=== PATIENT | male | born 1935 | race Caucasian/White ===

== ENCOUNTER 2018-12-01 19:09 | Inpatient (IN) | payer OTHER, MEDICAID ==
--- NOTE | 2018-11-20 22:30 | NUR ---
RECEIVED PT FROM ED NURSE AT BEDSIDE. PT IN STABLE CONDITION. AAOX2. INTRODUCED SELF TO PT. BOARD UPDATED. NO COMPLAINTS OF PAIN. NO SOB ON 2L O2 VIA NC. [email or web address] DEGREES. PT FROM [facility] IN [place]. IV SITE R AC 18G RUNNING NS@10ML/HR PATENT AND INTACT. SKIN WARM, DRY, AND NOT INTACT DUE TO A STAGE 1 PRESSURE ULCER AT THE SACRAL AREA. WOUND CONSULT IN BY . MRSA SWAB COLLECTED. PT HAS A LEFT ARM AV FISTULA. SIGN POSTED FOR NO VENIPUNCTURES OR BLOOD PRESSURES ON LEFT ARM. ALLERGY BAND APPLIED FOR HYDROCODONE, HYDROMORPHINE, AND MORPHINE. BED LOCKED IN LOW POSITION. CALL GREGORY WITHIN REACH. SAFETY PRECAUTIONS IN PLACE. ALL NEEDS MET AT THIS TIME.
[~2018-12-01] VITALS: Ht 167.6 cm; Wt 77.1 kg
[2018-12-01 19:25] VITALS: BP 127/48
[2018-12-01] MEDS ORDERED: NACL 0.9% 500 ML IV SCH (19:48)
--- NOTE | 2018-12-01 20:18 | NUR ---
Nichelle cronin in EDM - 12/01/18 at 2019 by [email or web address] PT AMBULATED TO THE RESTROOM, URIAH.
--- NOTE | 2018-12-01 20:20 | NUR ---
PT BIBA FROM NURSING FACILITY TO ED FOR EVALUATION OF ABNORMAL LABS, K 2.8, WBC 24.7. PT CURRENT UTI. AAO X2, GCS 15, ABLE TO SPEAK WITH FULL COMPLETE SENTNECES. PUPILS PERRL 3/3MM. RESPIRATIONS EVEN AND UNLABORED, BL LUNG SLIGHT RHONCI, C/O PRODUCTIVE COUGH. O2SAT ROOM AIR 88-89%, PLACE ON O2 2L/M VIA NC O2SAT 94%. YELLOWISH SECRETION. SKIN WARM/PINK/DRY, +PMSC. PT BEDBOUND, INCONTINENET OF BLADDER AND BOWEL. ABDOMEN SOFT, NO DISTENDED, ACTIVE BOWEL SOUND X4. VSS, DENIES PAIN AT THIS TIME. DR. TAVARES MADE AWARE OF PT STATUS. WILL CONTINEU TO MONITOR
[2018-12-01 20:35] LABS: BASOPHILS # (AUTO) 0.1 K/uL (0.00-0.22); BASOPHILS % (AUTO) 0.3 % (0.0-2.0); EOSINOPHILS % (AUTO) 0.1 % (0.0-4.0); HEMATOCRIT 38.5 % (36-52); HEMOGLOBIN 12.3 g/dL (12.0-18.0); LYMPHOCYTES # (AUTO) 1.5 K/uL (2.0-11.5); MEAN CORPUSCULAR HEMOGLOBIN 34 pg (27-31); MEAN CORPUSCULAR HGB CONC 32 g/dL (33-37); MEAN CORPUSCULAR VOLUME 104.8 fL (80-94); MONOCYTES # (AUTO) 2.2 K/uL (0.8-1.0); MONOCYTES % (AUTO) 10.5 % (1.7-9.3); NEUTROPHILS % (AUTO) 82.1 % (42.2-75.2); PLATELET COUNT (AUTO) 300 K/uL (140-450); RED BLOOD CELL COUNT(AUTO) 3.67 MIL/uL (4.20-6.10); RED CELL DISTRIBUTION WIDTH 14.5 % (11.6-13.7); WHITE BLOOD COUNT (AUTO) 20.7 K/uL (4.8-10.8)
[2018-12-01 20:51] LABS: ANION GAP 10.3 (8-16); CARBON DIOXIDE 31.8 mmol/L (21-32); CHLORIDE 98 mmol/L (98-107); CREATININE 3.2 mg/dL (0.7-1.3); GLUCOSE 113 mg/dL (74-106); POTASSIUM 3.1 mmol/L (3.5-5.1); SODIUM SERUM 137 mmol/L (136-145); UREA NITROGEN, BLOOD 45 mg/dL (7-18)
[2018-12-01 20:52] LABS: PROTHROMBIN TIME 10.2 secs (10.8-13.4)
[2018-12-01 20:55] LABS: APPEARANCE,URINE CLOUDY (CLEAR); BILIRUBIN,URINE 2+ (NEGATIVE); BLOOD, URINE 2+ (NEGATIVE); COLOR,URINE BROWN (YELLOW); LEUKOCYTE ESTERASE ,URINE 3+ (NEGATIVE); NITRITE, URINE NEGATIVE (NEGATIVE); PH,URINE 5.5 (5.0-9.0); UGLUCOSE NEGATIVE (NEGATIVE)
[2018-12-01 20:59] LABS: RBC,URINE 11-20 (MOD) /HPF (0-5); WBC,URINE TOO MANY TO COUNT /HPF (0-5)
[2018-12-01 21:09] LABS: ALBUMIN 2.8 g/dL (3.4-5.0); ASPARTATE AMINOTRANSFERASE 22 U/L (15-37); TOTAL BILIRUBIN 0.3 mg/dL (0.0-1.0)
[2018-12-01] MEDS ORDERED: LEVOFLOXACIN 500 MG/D5W PREMIX 100 ML IV ONE (21:25)
[2018-12-01] MEDS ORDERED: ASPIRIN 81 MG TAB.CHEW PO ONE (21:25)
[2018-12-01] MEDS ORDERED: POTASSIUM CHLORIDE 10 MEQ TABER PO ONE (21:30)
[2018-12-01] MEDS: NACL 0.9% 1,000 ML IV SCH (21:37)
[2018-12-01] MEDS ORDERED: ONDANSETRON 4 MG/2 ML VIAL IM/IVP PRN (21:40)
[2018-12-01] MEDS ORDERED: DOCUSATE SODIUM 100 MG GELCAP PO PRN (21:40)
[2018-12-01] MEDS ORDERED: ACETAMINOPHEN 325 MG TAB PO PRN (21:40)
--- NOTE | 2018-12-01 22:18 | NUR ---
PT REMAINS GCS 15, RESPIATIONS EVEN AND UNALBORED. CHANGE LINEN AND CLEANSE PERIAREA. OPEN AREA AT SACRAL NOTED.VSS, NO PAIN AT THIS TIME. WILL CONTINUE TO MONITOR
--- NOTE | 2018-12-01 22:26 | NUR ---
Patient will be admitted to care of . Admited to TELE. Will go to room 114. Belongings list completed. Report to MARKUS NADRE.
[2018-12-01 22:41] LABS: CHOL/HDL RATIO 2.3 (1-4.5); MAGNESIUM 2.4 mg/dL (1.8-2.4); PHOSPHORUS 3.9 mg/dL (2.5-4.9); THYROID STIMULATING HORMONE 3.76 uIU/mL (0.34-3.74)
[2018-12-01] MEDS ORDERED: VITA1TAB44 PO (23:12)
[2018-12-01] MEDS ORDERED: CHOL200072 PO (23:13)
[2018-12-01] MEDS ORDERED: SENN-72 PO (23:13)
[2018-12-01] MEDS ORDERED: SLIDE SUBQ (23:13)
[2018-12-01] MEDS ORDERED: METO-485 PO (23:13)
[2018-12-01] MEDS ORDERED: DOCU-299 PO (23:13)
[2018-12-01] MEDS ORDERED: ADAL40KI1 SUBQ (23:13)
[2018-12-01] MEDS ORDERED: LEVO0.0512 PO (23:13)
[2018-12-01] MEDS ORDERED: FAMO-90 PO (23:13)
[2018-12-01] MEDS ORDERED: AMLO10TA PO (23:13)
[2018-12-01] MEDS ORDERED: GABA100C PO (23:13)
[2018-12-01] MEDS ORDERED: HYDR-3233 PO (23:13)
[2018-12-01] MEDS ORDERED: SEVE800T6 PO (23:13)
[2018-12-01] MEDS ORDERED: PRED5TAB8 PO (23:13)
[2018-12-01] MEDS ORDERED: HYDR200T94 PO (23:13)
[2018-12-01] MEDS ORDERED: SULF500E8 PO (23:13)
[2018-12-01] MEDS ORDERED: PNEUMOCOCCAL VACCINE 23 MCG/0.5 ML VIAL IMVAC SCH (23:30)
[2018-12-01] MEDS ORDERED: ALBUTEROL SULFATE/IPRATROPIU 3 ML SOL IH PRN (23:40)
[2018-12-02] VITALS (7 sets, daily range): BP systolic 110–141; BP diastolic 51–72
--- NOTE | 2018-12-02 00:10 | NUR ---
PT STATED HE WAS HUNGRY. CALLED ANODE ADJUSTER TO BRING CH[employer]EN [employer] SANDWICH. PT ATE ABOUT HALF THE SANDWICH AND A SMALL AMOUNT OF JUICE. Addendum: 12/02/18 at 0030 by Reddy Santana RN FED BY RACH.
--- NOTE | 2018-12-02 02:30 | NUR ---
PT SLEEPING COMFORTABLY IN BED. NO S/S OF DISTRESS NOTED. BREATHING EVEN, UNLABORED, AND WNL. WILL CONTINUE TO MONITOR.
--- NOTE | 2018-12-02 03:30 | NUR ---
PT SLEEPING COMFORTABLY BUT AROUSABLE. DREDGE PIPEMAN'S IN TO TURN PT. NO S/S OF DISTRESS NOTED. WILL CONTINUE TO MONITOR.
--- NOTE | 2018-12-02 05:30 | NUR ---
PT NEEDED TO USE RESTROOM. PREPARING BOX TENDER'S AIDED HIM. NO S/S OF DISTRESS NOTED. WILL CONTINUE TO MONITOR.
[2018-12-02 06:42] LABS: BASOPHILS % (AUTO) 0.1 % (0.0-2.0); EOSINOPHILS % (AUTO) 0.1 % (0.0-4.0); HEMATOCRIT 33.6 % (36-52); HEMOGLOBIN 10.9 g/dL (12.0-18.0); LYMPHOCYTES # (AUTO) 1.5 K/uL (2.0-11.5); LYMPHOCYTES % (AUTO) 7.7 % (20.5-51.1); MEAN CORPUSCULAR HEMOGLOBIN 34 pg (27-31); MEAN CORPUSCULAR HGB CONC 33 g/dL (33-37); MEAN CORPUSCULAR VOLUME 104.1 fL (80-94); MONOCYTES # (AUTO) 1.5 K/uL (0.8-1.0); NEUTROPHILS # (AUTO) 16.1 K/uL (1.8-7.7); NEUTROPHILS % (AUTO) 84.1 % (42.2-75.2); PLATELET COUNT (AUTO) 274 K/uL (140-450); RED BLOOD CELL COUNT(AUTO) 3.23 MIL/uL (4.20-6.10); RED CELL DISTRIBUTION WIDTH 14.2 % (11.6-13.7); WHITE BLOOD COUNT (AUTO) 19.2 K/uL (4.8-10.8)
[2018-12-02 06:45] LABS: MAGNESIUM 2.3 mg/dL (1.8-2.4); PHOSPHORUS 4.4 mg/dL (2.5-4.9)
[2018-12-02 06:52] LABS: ANION GAP 13.9 (8-16); CARBON DIOXIDE 28.6 mmol/L (21-32); CHLORIDE 102 mmol/L (98-107); CREATININE 3.4 mg/dL (0.7-1.3); GLUCOSE 151 mg/dL (74-106); POTASSIUM 3.5 mmol/L (3.5-5.1); SODIUM SERUM 141 mmol/L (136-145); UREA NITROGEN, BLOOD 50 mg/dL (7-18)
[2018-12-02] MEDS: ALBUTEROL SULFATE/IPRATROPIU 3 ML SOL IH SCH ×3 (07:05→20:01)
--- NOTE | 2018-12-02 07:05 | NUR ---
REPORT GIVEN TO AM NURSE AT BEDSIDE. PT IN STABLE CONDITION.
--- NOTE | 2018-12-02 07:08 | NUR ---
RECEIVED BEDSIDE REPORT FROM STAFF DEVELOPMENT COORDINATOR RN FOR CONTINUITY OF CARE. PT IN STABLE CONDITION. AOX2. DENIES PAIN AND DISCOMFORT. NO S/S DISTRESS. RESPIRATIONS EVEN AND UNLABORED. SATURATING 92% ON 2L NC. ACTIVE BS IN ALL QUADRANTS. ABDOMEN SOFT AND NON-DISTENDED. ECCHYMOSIS NOTED ON BUE ESPECIALLY THE HANDS. OPEN WOUND ON SACRUM, PENDING WOUND EVAL. PER STAFF DEVELOPMENT COORDINATOR RN, PT IS NOT AMBULATORY AND IS OLIGURIC. IV SITE PATENT AND ASYMPTOMATIC, ON SL. LT AV FISTULA NOTED. PT TO RECEIVED HD TODAY. ALL SAFETY PRECAUTIONS IN PLACE, WILL CONTINUE TO MONITOR.
--- NOTE | 2018-12-02 08:30 | NUR ---
PATIENT HAS BEEN SCREENED AND CATEGORIZED MODERATE NUTRITION RISK. PATIENT WILL BE SEEN WITHIN 3-5 DAYS OF ADMISSION. 12/04/18MICHELLE JOHNSON RD
[2018-12-02] MEDS: hydrALAZINE 10 MG TAB PO SCH ×2 (09:00→21:57)
[2018-12-02] MEDS: amLODIPine 5 MG TAB PO SCH (09:00)
[2018-12-02] MEDS: GABAPENTIN 100 MG CAP PO SCH ×2 (09:32→21:57)
[2018-12-02] MEDS: VIT-B COMP/VIT-C/FOLIC ACID 1 TAB PO SCH (09:32)
[2018-12-02] MEDS: METOCLOPRAMIDE 10 MG TAB PO SCH ×3 (09:32→17:10)
[2018-12-02] MEDS: SEVELAMER CARBONATE 800 MG TAB PO SCH ×3 (09:32→17:07)
[2018-12-02] MEDS: DOCUSATE SODIUM 100 MG GELCAP PO SCH ×2 (09:32→21:57)
[2018-12-02] MEDS: SENNA 8.6 MG TAB PO SCH (09:33)
[2018-12-02] MEDS: LACTOBACILLUS RHAMNOSUS GG 1 EACH CAP PO SCH (09:33)
[2018-12-02] MEDS: FAMOTIDINE 20 MG TAB PO SCH (09:33)
[2018-12-02] MEDS: LEVOTHYROXINE 0.05 MG TAB PO SCH (09:33)
--- NOTE | 2018-12-02 09:44 | NUR ---
ADMINISTERED SCHEDULED MEDICATIONS. PATIENT ABLE TO SWALLOW PILLS WHOLE WITHOUT PROBLEMS. DID NOT ADMIN BP MEDS- PT TO RECEIVE HD TODAY PER DR. LAMBERT.
--- NOTE | 2018-12-02 10:38 | NUR ---
CALLED [facility] AND NOTIFIED OF ORDER FOR HD TODAY.
[2018-12-02] MEDS ORDERED: DEXTROSE 50% 50 ML SYR IVP PRN (12:05)
--- NOTE | 2018-12-02 12:37 | NUR ---
NOTIFIED TAR CHASER THAT CONSENT AND LABS ARE IN CHART. TAR CHASER TO SEE PATIENT SHORTLY.
--- NOTE | 2018-12-02 14:51 | NUR ---
Hand Ii Tube Bender Note: Per Yeimi from [facility] , she will check if patient is on a 7 day bed hold, look for outpatient dialysis information, verify if patient is self responsible with medical decisions, and call me back with information.
--- NOTE | 2018-12-02 15:57 | NUR ---
ASKED MOBILE MANAGER GRACE TO INPUT WOUND ORDERS. SHE IS AWARE. Addendum: 12/02/18 at 1622 by Alyson Neri Meng, RN INPUT WOUND CARE NOTE*
--- NOTE | 2018-12-02 16:11 | NUR ---
WOUND CARE EVALUATION NOTES: REASON FOR EVALUATION: SACRAL ULCER SKIN ASSESSMENT DONE ON PRIMARY RN THIS MORNING WITH THIS 83Y/O MALE PATIENT TO [facility], WITH INITIAL DIAGNOSIS OF UTI, HI. PATIENT IS AWAKE VERBALIZES NEEDS, SKIN WARM TO TOUCH, MULTIPLE ECCHYMOSIS TO HANDS AND UPPER EXTREMITIES, TOENAILS ARE LONG AND THICKENED, +1 EDEMA, NO HAIR GROWTH, BILATERAL PEDAL PULSES PRESENT AND NORMAL. NEEDS MODERATE ASSISTANCE IN TURNING. PLAN OF CARE AND PRESSURE PREVENTIVE MEASURES DISCUSSED TO PRIMARY RN AND PT. PT ABLE TO VERBALIZE UNDERSTANDING. INTEGUMENTARY: -SACRALCOCCYX DTI 100% MAROON 0.5X0.4CM -RIGHT/ LEFT BUTTOCKS TO PERIANAL INCONTINENT ASSOCIATE DERMATITIS REDNESS WITH AN EROSION TO RIGHT BUTTOCK 7X5X0.1CM, NO S/S OF INFECTION. RECOMMENDATIONS: -APPLY OPTIFOAM TO SACRALCOCCYX AREA CHANGE Q3D AND PRN IF SOILING -CLEANSE RIGHT/ LEFT BUTTOCKS WITH MILD SOAP AND WATER, PAT DRY, APPLY Z GUARD BIDWC AND PRN WITH SOILING. LEAVE OPEN TO AIR -APPLY BODY TO BILATERAL LOWER LEGS DRYNESS DAILY -TURN AND REPOSITION PATIENT Q 2H -ASSESS AND MONITOR SKIN CONDITION DURING POSITION CHANGE, PLEASE PAY ATTENTION TO SACRALCOCCYX, ELBOWS AND HEELS -OFFLOAD BILATERAL HEELS BY PLACING PILLOWS UNDER CALVES AT ALL TIMES, UNLESS OTHERWISE CONTRAINDICATED -PRESSURE REDISTRIBUTION SURFACE THERAPY -KEEP SKIN CLEAN AND DRY AT ALL TIMES. RECOMMENDATIONS DISCUSSED WITH PRIMARY RN PLEASE CONTACT WOUND CARE NURSE FOR ANY QUESTIONS AND CHANGES IN SKIN CONDITION.
--- NOTE | 2018-12-02 16:15 | NUR ---
Or Assistant Note: I received a call from Yeimi at [facility] , she stated patient is on a 7 day bed hold and is one of their salvage determiner patients. She reported patient receives his dialysis treatment at [facility] on Friday/Friday/Friday at 2pm, transported by [facility]. Upper Leather Sorter and/or Hospitality House Supervisor will follow up as needed.
--- NOTE | 2018-12-02 16:58 | NUR ---
HEMODIALYSIS COMPLETE. PER STENO POOL SUPERVISOR, PT IS BLEEDING FROM AV SHUNT SITE. PRESSURE AND BANDAGES HAVE BEEN PLACED ON AV SHUNT BY STENO POOL SUPERVISOR. WILL CONTINUE TO MONITOR. STENO POOL SUPERVISOR RECOMMENDS THAT PATIENT NOT BE MOVED FOR AN HOUR IF POSSIBLE TO PREVENT BLEEDING.
[2018-12-02] MEDS: FOAM DRESSING TP SCH (17:00)
[2018-12-02] MEDS: INSULIN LISPRO SLIDING SCALE 100 UNITS/ML VIAL SUBQ PRN (17:04)
[2018-12-02] MEDS: BLOOD GLUCOSE MONITORING 1 DEV DEV FS SCH ×2 (17:10→21:57)
--- NOTE | 2018-12-02 18:34 | NUR ---
1.5 HOUR AFTER HD. NO BLEEDING NOTED ON BANDAGES OVER AV SHUNT. PT JUST FINISHED EATING DINNER. DOES NOT WANT TO TURN FOR FOAM DRESSING. WILL ENDORSE TO COPY WORKER.
--- NOTE | 2018-12-02 20:00 | NUR ---
PT RESTING IN BED. AOX1-CONFUSED, MONTSERRATIAN SPEAKING, ON 2L/NC, WITH RIGHT AC #22G. SACRAL PRESSURE ULCER-HEALED WITH PURPLE/PINK SKIN AND INCONTINENT DERMATITIS. DISCUSSED PLAN OF CARE AND PT VERBALIZED UNDERSTANDING. VITAL SIGNS TAKEN AND TOLERATED WELL. BLOOD GLUCOSE 147- NO INSULIN COVERAGE NEEDED. BED IN LOWEST POSITION, BED BREAKS ON, BOTH SIDE RAILS UP AND BOTH FALL AND ASPIRATION PRECAUTIONS IN PALACE. BEDSIDE TABLE AND CALL LIGHT ARE WITHIN REACH. WILL CONTINUE TO MONITOR.
[2018-12-02] MEDS: NACL 0.9% 1,000 ML IV SCH (21:37)
--- NOTE | 2018-12-02 22:02 | NUR ---
SCHEDULED MEDICATION GIVEN AND TOLERATED WELL. NO S/S OF RESPIRATORY DISTRESS OR DISCOMFORT NOTED AT THIS TIME. WILL CONTINUE TO MONITOR.
[2018-12-02] MEDS: Z-GUARD PASTE TP SCH (23:22)
--- NOTE | 2018-12-02 23:35 | NUR ---
RACH RAMOS AND RACH UMAÑA ASSISTED PT WITH PERINEAL CARE, PLACED OPTIFOAM ON SACRAL AREA AND Z-GUARD. RIGHT FA NOTED TO BE SWOLLEN- IV CANNULA HAD BEEN PULLED OUT PARTIALLY CAUSING INFILTRATION. IV WAS TAKEN OUT. NEW IV SITE ON RIGHT UPPER ARM #24G- PATENT AND FLUSHING WELL- INSERTED ON FIRST ATTEMPT. PT TOLERATED WELL. NO S/S OF RESPIRATORY DISTRESS OR DISCOMFORT NOTED AT THIS TIME. WILL CONTINUE TO MONITOR.
[2018-12-03] VITALS: BP 147/59
--- NOTE | 2018-12-03 | NUR ---
VITAL SIGNS TAKEN AND TOLERATED WELL. NO S/S OF RESPIRATORY DISTRESS OR DISCOMFORT NOTED AT THIS TIME. WILL CONTINUE TO MONITOR.
--- NOTE | 2018-12-03 02:00 | NUR ---
PT CONTINUES TO SLEEP IN BED. NO S/S OF RESPIRATORY DISTRESS OR DISCOMFORT NOTED AT THIS TIME. WILL CONTINUE TO MONITOR.
[2018-12-03 04:00] VITALS: BP 146/56
--- NOTE | 2018-12-03 04:00 | NUR ---
VITAL SIGNS TAKEN AND TOLERATED WELL. NO S/S OF RESPIRATORY DISTRESS OR DISCOMFORT NOTED AT THIS TIME. WILL CONTINUE TO MONITOR.
--- NOTE | 2018-12-03 06:00 | NUR ---
BLOOD GLUCOSE 91- NO INSULIN COVERAGE GIVEN. PT TOLERATED WELL. NO S/S OF RESPIRATORY DISTRESS OR DISCOMFORT NOTED AT THIS TIME. WILL CONTINUE TO MONITOR.
[2018-12-03] MEDS: BLOOD GLUCOSE MONITORING 1 DEV DEV FS SCH ×5 (06:13→21:03)
[2018-12-03] MEDS: ALBUTEROL SULFATE/IPRATROPIU 3 ML SOL IH SCH ×3 (07:21→20:06)
[2018-12-03 07:25] LABS: BASOPHILS % (AUTO) 0.4 % (0.0-2.0); EOSINOPHILS # (AUTO) 0.1 K/uL (0-0.4); HEMATOCRIT 33.9 % (36-52); HEMOGLOBIN 11.2 g/dL (12.0-18.0); LYMPHOCYTES # (AUTO) 1.9 K/uL (2.0-11.5); LYMPHOCYTES % (AUTO) 18.3 % (20.5-51.1); MEAN CORPUSCULAR HEMOGLOBIN 35 pg (27-31); MEAN CORPUSCULAR HGB CONC 33 g/dL (33-37); MEAN CORPUSCULAR VOLUME 104.6 fL (80-94); MONOCYTES # (AUTO) 1.2 K/uL (0.8-1.0); MONOCYTES % (AUTO) 11.9 % (1.7-9.3); NEUTROPHILS % (AUTO) 68.4 % (42.2-75.2); PLATELET COUNT (AUTO) 268 K/uL (140-450); RED BLOOD CELL COUNT(AUTO) 3.24 MIL/uL (4.20-6.10); RED CELL DISTRIBUTION WIDTH 14.2 % (11.6-13.7); WHITE BLOOD COUNT (AUTO) 10.2 K/uL (4.8-10.8)
--- NOTE | 2018-12-03 07:30 | NUR ---
RECEIVED PT FROM MOLD LAMINATOR NURSE, ROGELIO, PT IS ON A BREATHING TX, RT ON THE BEDSIDE, ,PT HAS AN AV SHUNT ON THE LEFT FA AND IS RESTRICTED FOR ANY VENIPUNCTURE AND BP CHECK, SIDE RAILS ARE UP AND CALL LIGHT WITHIN REACH, FALL PRECAUTION ENFORCED. PT HAS AN IV LINE ON RT UA G.24 WITH NS AT 10ML/HR INFUSING. PRESSURE ULCER NOTED ON THE SACRAL AREA, REINFORCED WITH OPTIFOAM DRESSING. PT DENIES PAIN AND NO SOB NOTED, WILL CONTINUE TO MONITOR PT.
[2018-12-03 07:50] LABS: ANION GAP 13.1 (8-16); CARBON DIOXIDE 28.6 mmol/L (21-32); CHLORIDE 101 mmol/L (98-107); CREATININE 2.8 mg/dL (0.7-1.3); GLUCOSE 107 mg/dL (74-106); POTASSIUM 3.7 mmol/L (3.5-5.1); SODIUM SERUM 139 mmol/L (136-145); UREA NITROGEN, BLOOD 36 mg/dL (7-18)
[2018-12-03 08:00] VITALS: BP 169/49
--- NOTE | 2018-12-03 08:00 | NUR ---
PT IS AWAKE AND ON THE BEDSIDE, O2 AT 2L VIA NC IN PLACE, PT HAS AN AV SHUNT ON THE LEFT ARM FOR DIALYSIS, NO SIGN OF DISTRESS NOTED AND WILL MONITOR PT.
[2018-12-03] MEDS: DOCUSATE SODIUM 100 MG GELCAP PO SCH ×2 (08:28→21:02)
[2018-12-03] MEDS: hydrALAZINE 10 MG TAB PO SCH ×2 (08:28→21:02)
[2018-12-03] MEDS: METOCLOPRAMIDE 10 MG TAB PO SCH ×3 (08:28→17:52)
[2018-12-03] MEDS: amLODIPine 5 MG TAB PO SCH (08:29)
[2018-12-03] MEDS: FAMOTIDINE 20 MG TAB PO SCH (08:30)
[2018-12-03] MEDS: SEVELAMER CARBONATE 800 MG TAB PO SCH ×3 (08:31→17:51)
[2018-12-03] MEDS: LACTOBACILLUS RHAMNOSUS GG 1 EACH CAP PO SCH (08:31)
[2018-12-03] MEDS: SENNA 8.6 MG TAB PO SCH (08:31)
[2018-12-03] MEDS: LEVOTHYROXINE 0.05 MG TAB PO SCH (08:32)
[2018-12-03] MEDS: GABAPENTIN 100 MG CAP PO SCH ×2 (08:32→21:02)
[2018-12-03] MEDS: VIT-B COMP/VIT-C/FOLIC ACID 1 TAB PO SCH (08:32)
--- NOTE | 2018-12-03 08:34 | NUR ---
PT IS AWAKE AND BEING FED BY THE INSIDE SALES ASSISTANT, EMMETT, V/S TAKEN AND BP IS 169/50, PULSE IS 78, O2 SATURATION IS 96%, AND RESPIRATION IS 18, ORAL MEDICATIONS CRUSHED AND WERE GIVEN TO PT, IV MEDICATION GIVEN VIA PIGGYBACK AND PT TOLERATED IT ALL. WILL MONITOR PT.
--- NOTE | 2018-12-03 10:40 | NUR ---
SPOKE TO DR. LAMBERT AND ASKED MD IF DIALYSIS WILL BE DONE TO PT TODAY AND AGREED AND VERBALIZED THAT DR. BOX ORDERED IT.
[2018-12-03 12:00] VITALS: BP 143/50
[2018-12-03] MEDS: Z-GUARD PASTE TP SCH (13:00)
--- NOTE | 2018-12-03 13:00 | NUR ---
DIALYSIS WAS STARTED TO PT NOW.
--- NOTE | 2018-12-03 13:23 | NUR ---
Clinical Practitioner Note: I called and spoke with patient's Yeimi Melgar (speaks Icelandic). She requested I contact [facility] and [facility] to inquire if they have assistant terminal manager beds available. She stated she has to take two buses to get to [facility] . Per Rose from [facility] , no correction beds available at this time. Per Alex at [facility] , no correction beds available at this time. I called Yeimi back and informed her none of those snfs have a correction bed available at this time. Per Yeimi, she is in agreement with patient's transfer to [facility] upon discharge.
--- NOTE | 2018-12-03 13:32 | NUR ---
HEMODIALYSIS IN PROGRESS
--- NOTE | 2018-12-03 13:35 | NUR ---
HEMODIALYSIS IS BEING DONE TO PT NOW.
[2018-12-03 16:00] VITALS: BP 137/70
--- NOTE | 2018-12-03 17:20 | NUR ---
DIALYSIS IS FINISHED NOW WITH 3L OUTPUT, PT BP IS 157/70 PULSE IS 80. NO SIGN OF DISTRESS NOTED.
--- NOTE | 2018-12-03 17:52 | NUR ---
BLOOD GLUCOSE CHECK DONE TO PT NOW AND RESULT IS 110. NO INSULIN COVERAGE NEEDED.
--- NOTE | 2018-12-03 19:30 | NUR ---
ENDORSED PT TO [facility] FOR CONTINUITY OF CARE. PT IS STABLE AT THIS TIME.
--- NOTE | 2018-12-03 19:31 | NUR ---
RECEIVED REPORT FROM DAY SHIFT NURSE RICARDO-RN AT BEDSIDE. PT RESTING IN BED. AOX1-CONFUSED, MALAY SPEAKING, ON 2L/NC, WITH RIGHT UPPER ARM #24G. SACRAL PRESSURE ULCER-HEALED WITH PURPLE/PINK SKIN AND INCONTINENT DERMATITIS. DISCUSSED PLAN OF CARE AND PT VERBALIZED UNDERSTANDING. BED IN LOWEST POSITION, BED BREAKS ON, BOTH SIDE RAILS UP AND BOTH FALL AND ASPIRATION PRECAUTIONS IN PALACE. BEDSIDE TABLE AND CALL LIGHT ARE WITHIN REACH. WILL CONTINUE TO MONITOR.
[2018-12-03 20:00] VITALS: BP 146/68
--- NOTE | 2018-12-03 20:00 | NUR ---
VITAL SIGNS TAKEN AND TOLERATED WELL. BLOOD GLUCOSE 125- NO INSULIN COVERAGE NEEDED. NO S/S OF RESPIRATORY DISTRESS OR DISCOMFORT NOTED AT THIS TIME. WILL CONTINUE TO MONITOR.
--- NOTE | 2018-12-03 20:17 | NUR ---
RECEIVED PATIENT ON 2L NC, PULSE OX 96%. SCHEDULED BREATHING TREATMENT ADMINISTERED. TOLERATED TX WELL, NO ADVERSE SIDE EFFECTS. NO RESPIRATORY DISTRESS NOTED. WILL CONTINUE TO MONITOR.
[2018-12-03] MEDS ORDERED: LEVOFLOXACIN 250 MG/D5 PREMIX 50 ML IV SCH (21:00)
--- NOTE | 2018-12-03 21:02 | NUR ---
SCHEDULED MEDICATION GIVEN IN APPLE SAUCE REQUESTED BY PT. PT TOLERATED WELL. HEPARIN SUBQ NOT GIVEN DUE TO AN INCREASE OF BLOOD NOTED FROM BLOOD GLUCOSE CHECK. INFORMED DR. MAURISIO WOLF AND RECOMMENDED COAGULATION LABS TO BE DRAWN DUE TO LAST LAB DATED 12/01/2018. DR WOLF SAID HE WOULD ORDER LABS FOR THE AM AND NOT TO GIVEN HEPARIN DOSE- PHYSICIAN HOLD. NO S/S OF RESPIRATORY DISTRESS OR DISCOMFORT NOTED AT THIS TIME. WILL CONTINUE TO MONITOR.
[2018-12-03] MEDS: NACL 0.9% 1,000 ML IV SCH (21:37)
--- NOTE | 2018-12-03 23:00 | NUR ---
PT CONTINUES TO SLEEP IN BED. NO S/S OF RESPIRATORY DISTRESS OR DISCOMFORT NOTED AT THIS TIME. WILL CONTINUE TO MONITOR.
[2018-12-04] VITALS: BP 138/57
--- NOTE | 2018-12-04 | NUR ---
VITAL SIGNS TAKEN AND TOLERATED WELL. NO S/S OF RESPIRATORY DISTRESS OR DISCOMFORT NOTED AT THIS TIME. WILL CONTINUE TO MONITOR.
[2018-12-04] MEDS: Z-GUARD PASTE TP SCH ×2 (00:47→13:33)
--- NOTE | 2018-12-04 02:00 | NUR ---
PT CONTINUES TO SLEEP IN BED. NO S/S OF RESPIRATORY DISTRESS OR DISCOMFORT NOTED AT THIS TIME. WILL CONTINUE TO MONITOR.
[2018-12-04 04:00] VITALS: BP 148/60
--- NOTE | 2018-12-04 04:00 | NUR ---
VITAL SIGNS TAKEN AND TOLERATED WELL. NO S/S OF RESPIRATORY DISTRESS OR DISCOMFORT NOTED AT THIS TIME. WILL CONTINUE TO MONITOR.
--- NOTE | 2018-12-04 06:00 | NUR ---
BLOOD GLUCOSE 103- NO INSULIN COVERAGE GIVEN. NO S/S OF RESPIRATORY DISTRESS OR DISCOMFORT NOTED AT THIS TIME. WILL CONTINUE TO MONITOR.
[2018-12-04] MEDS: BLOOD GLUCOSE MONITORING 1 DEV DEV FS SCH ×4 (06:04→20:37)
[2018-12-04 06:52] LABS: ANION GAP 11.2 (8-16); CARBON DIOXIDE 30.2 mmol/L (21-32); CHLORIDE 100 mmol/L (98-107); CREATININE 2.3 mg/dL (0.7-1.3); GLUCOSE 105 mg/dL (74-106); POTASSIUM 3.4 mmol/L (3.5-5.1); SODIUM SERUM 138 mmol/L (136-145); UREA NITROGEN, BLOOD 25 mg/dL (7-18)
[2018-12-04 07:13] LABS: BASOPHILS % (AUTO) 0.3 % (0.0-2.0); EOSINOPHILS # (AUTO) 0.1 K/uL (0-0.4); HEMATOCRIT 32.5 % (36-52); HEMOGLOBIN 10.8 g/dL (12.0-18.0); LYMPHOCYTES # (AUTO) 1.7 K/uL (2.0-11.5); LYMPHOCYTES % (AUTO) 20.4 % (20.5-51.1); MEAN CORPUSCULAR HEMOGLOBIN 34 pg (27-31); MEAN CORPUSCULAR HGB CONC 33 g/dL (33-37); MEAN CORPUSCULAR VOLUME 102.8 fL (80-94); MONOCYTES % (AUTO) 12.7 % (1.7-9.3); NEUTROPHILS # (AUTO) 5.4 K/uL (1.8-7.7); NEUTROPHILS % (AUTO) 65.6 % (42.2-75.2); PLATELET COUNT (AUTO) 281 K/uL (140-450); RED BLOOD CELL COUNT(AUTO) 3.17 MIL/uL (4.20-6.10); WHITE BLOOD COUNT (AUTO) 8.2 K/uL (4.8-10.8)
[2018-12-04] MEDS: ALBUTEROL SULFATE/IPRATROPIU 3 ML SOL IH SCH ×3 (07:18→20:12)
--- NOTE | 2018-12-04 07:29 | NUR ---
ENDORSED PT CARE TO DAY SHIFT NURSE SITAL -RN FOR CONTINUITY OF CARE.
[2018-12-04 08:00] VITALS: BP 150/59
[2018-12-04] MEDS: LACTOBACILLUS RHAMNOSUS GG 1 EACH CAP PO SCH (10:24)
[2018-12-04] MEDS: SEVELAMER CARBONATE 800 MG TAB PO SCH ×3 (10:25→18:19)
[2018-12-04] MEDS: GABAPENTIN 100 MG CAP PO SCH ×2 (10:25→20:37)
[2018-12-04] MEDS: FAMOTIDINE 20 MG TAB PO SCH (10:25)
[2018-12-04] MEDS: METOCLOPRAMIDE 10 MG TAB PO SCH ×3 (10:26→18:19)
[2018-12-04] MEDS: VIT-B COMP/VIT-C/FOLIC ACID 1 TAB PO SCH (10:26)
[2018-12-04] MEDS: amLODIPine 5 MG TAB PO SCH (10:26)
[2018-12-04] MEDS: LEVOTHYROXINE 0.05 MG TAB PO SCH (10:26)
[2018-12-04] MEDS: hydrALAZINE 10 MG TAB PO SCH ×2 (10:27→20:37)
[2018-12-04] MEDS: DOCUSATE SODIUM 100 MG GELCAP PO SCH ×2 (10:28→20:37)
[2018-12-04] MEDS: SENNA 8.6 MG TAB PO SCH (10:28)
--- NOTE | 2018-12-04 12:18 | NUR ---
CALLED [facility] AND SPOKE WITH LILIA. FAXED INFORMATION TO HER AT [phone]. INFORMED HER THAT PATIENT MAY POSSIBLY BE DISCHARGE OVER THE WEEKEND. FOR TRANSPORT CAN GO THROUGH [facility]. [phone].
[2018-12-04] MEDS: INSULIN LISPRO SLIDING SCALE 100 UNITS/ML VIAL SUBQ PRN (13:16)
--- NOTE | 2018-12-04 13:33 | NUR ---
APPLIED SCD ON PT PER MD ORDER. HEPARIN ON HOLD, TROPONIN NORMAL AT THIS POINT. ADMINISTER MEDS TO PT . PT STABLE. PT STABLE AT THIS THIS TIME. WILL CONTINUE TO MONITOR PT.
--- NOTE | 2018-12-04 13:46 | NUR ---
12/04/18 RD INITIAL ASSESSMENT COMPLETED PLEASE REFER TO NUTRITION ASSESSMENT UNDER CARE ACTIVITY FOR ESTIMATED NUTRITIONAL NEEDS. 1. CONTINUE RENAL AND CCHO 45 GM DIET TOLERATED 2. RECOMMEND NEPRO BID 3. RECOMMEND VITAMIN C [address] PROVIDED NUTRITION EDUCATION ON ESRD ON DIALYSIS 5. RD TO FOLLOW-UP 3-5 DAYS, MODERATE RISK MICHELLE JOHNSON, RD
--- NOTE | 2018-12-04 15:07 | NUR ---
RECEIVED A CALL FROM LILIA FROM [facility]. THE PATIENT CAN GO TO ROOM 29C UNDER DR. KRAUSE. I INFORMED HER WE ARE STILL WAITING FOR RESULTS OF URINE CULTURE. WHEN THE RESULTS COME BACK,. CALL [facility] [phone]. SHANTANU ANDREAGRICULTURE LABORATORY TECHNICIAN NURSE AWARE.
[2018-12-04 16:00] VITALS: BP 135/61
--- NOTE | 2018-12-04 17:30 | NUR ---
CHECKED ON PT. BS 113 AT THIS TIME. PT LYING HIS BED COMFORTABLY. ALL SAFETY MEASURE IN PLACE. WILL CONTINUE TO MONITOR PATIENT.
--- NOTE | 2018-12-04 19:25 | NUR ---
ENDORSED PT TO PM NURSE AT BED-SIDE. PT IN STABLE CONDITION.
--- NOTE | 2018-12-04 19:26 | NUR ---
RECEIVED REPORT FROM DAY SHIFT NURSE TANNER-RN AT BEDSIDE. PT RESTING IN BED. AOX2-CONFUSED, GERMAN SPEAKING, ON 2L/NC, WITH RIGHT UPPER ARM #24G. SACRAL PRESSURE ULCER-HEALED WITH PURPLE/PINK SKIN AND INCONTINENT DERMATITIS. DISCUSSED PLAN OF CARE AND PT VERBALIZED UNDERSTANDING. BED IN LOWEST POSITION, BED BREAKS ON, BOTH SIDE RAILS UP WITH FALL, ASPIRATION AND CONTACT PRECAUTIONS IN PALACE FOR MDRO/BOWLING BALL MOLD ASSEMBLER OF URINE. BEDSIDE TABLE AND CALL LIGHT ARE WITHIN REACH. WILL CONTINUE TO MONITOR.
[2018-12-04 20:00] VITALS: BP 150/69
--- NOTE | 2018-12-04 20:00 | NUR ---
VITAL SIGNS TAKEN AND TOLERATED WELL. BLOOD GLUCOSE 131- NO INSULIN COVERAGE GIVEN. PT TOLERATED WELL. NO S/S OF RESPIRATORY DISTRESS OR DISCOMFORT NOTED AT THIS TIME. WILL CONTINUE TO MONITOR.
--- NOTE | 2018-12-04 20:23 | NUR ---
RECEIVED PATIENT ON 2LNC, PULSE OX SAT 95%. SCHEDULED BREATHING TX ADMINISTERED. TOLERATED TX WELL, NO ADVERSE SIDE EFFECTS. PLACED PATIENT BACK ON 2L NC. NO RESPIRATORY DISTRESS NOTED. WILL CONTINUE TO MONITOR.
--- NOTE | 2018-12-04 20:37 | NUR ---
SCHEDULED MEDICATION GIVEN AND TOLERATED WELL. HEPARIN NOT GIVEN DUE TO PHYSICIAN HOLD. NO S/S OF RESPIRATORY DISTRESS OR DISCOMFORT NOTED AT THIS TIME. WILL CONTINUE TO MONITOR.
[2018-12-04] MEDS: NACL 0.9% 1,000 ML IV SCH (20:44)
--- NOTE | 2018-12-04 22:00 | NUR ---
PT SLEEPING IN BED. NO S/S OF RESPIRATORY DISTRESS OR DISCOMFORT NOTED AT THIS TIME. WILL CONTINUE TO MONITOR.
[2018-12-05] VITALS: BP 133/68
--- NOTE | 2018-12-05 | NUR ---
VITAL SIGNS TAKEN AND TOLERATED WELL. NO S/S OF RESPIRATORY DISTRESS OR DISCOMFORT NOTED AT THIS TIME. WILL CONTINUE TO MONITOR.
[2018-12-05] MEDS: Z-GUARD PASTE TP SCH ×2 (01:21→13:55)
--- NOTE | 2018-12-05 02:00 | NUR ---
PT CONTINUES TO SLEEP IN BED. NO S/S OF RESPIRATORY DISTRESS OR DISCOMFORT NOTED AT THIS TIME. WILL CONTINUE TO MONITOR.
--- NOTE | 2018-12-05 04:00 | NUR ---
PT CONTINUES TO SLEEP IN BED. NO S/S OF RESPIRATORY DISTRESS OR DISCOMFORT NOTED AT THIS TIME. WILL CONTINUE TO MONITOR.
--- NOTE | 2018-12-05 06:00 | NUR ---
BLOOD GLUCOSE 91- NO INSULIN COVERAGE GIVEN. PT TOLERATED WELL. NO S/S OF RESPIRATORY DISTRESS OR DISCOMFORT NOTED AT THIS TIME. WILL CONTINUE TO MONITOR.
[2018-12-05] MEDS: BLOOD GLUCOSE MONITORING 1 DEV DEV FS SCH ×3 (06:32→16:29)
[2018-12-05] MEDS: ALBUTEROL SULFATE/IPRATROPIU 3 ML SOL IH SCH ×2 (07:09→13:00)
[2018-12-05 07:18] LABS: BASOPHILS % (AUTO) 0.5 % (0.0-2.0); EOSINOPHILS # (AUTO) 0.1 K/uL (0-0.4); EOSINOPHILS % (AUTO) 1.5 % (0.0-4.0); HEMATOCRIT 32.1 % (36-52); HEMOGLOBIN 10.7 g/dL (12.0-18.0); LYMPHOCYTES # (AUTO) 2.5 K/uL (2.0-11.5); MEAN CORPUSCULAR HEMOGLOBIN 34 pg (27-31); MEAN CORPUSCULAR HGB CONC 33 g/dL (33-37); MONOCYTES # (AUTO) 1.1 K/uL (0.8-1.0); MONOCYTES % (AUTO) 12.4 % (1.7-9.3); NEUTROPHILS # (AUTO) 5.3 K/uL (1.8-7.7); NEUTROPHILS % (AUTO) 58.6 % (42.2-75.2); PLATELET COUNT (AUTO) 296 K/uL (140-450); RED BLOOD CELL COUNT(AUTO) 3.15 MIL/uL (4.20-6.10); RED CELL DISTRIBUTION WIDTH 14.1 % (11.6-13.7); WHITE BLOOD COUNT (AUTO) 9.1 K/uL (4.8-10.8)
--- NOTE | 2018-12-05 07:21 | NUR ---
RECEIVED PATIENT ON 2LNC, PULSE OX SAT 95%. PT IS AAOX2. SCHEDULED BREATHING TX ADMINISTERED. TOLERATED TX WELL, NO ADVERSE SIDE EFFECTS. PT WILL BE RECEIVING DIALYSIS TODAY. NO RESPIRATORY DISTRESS NOTED. WILL CONTINUE TO MONITOR. JESICA IN LOW POSITION, CALL LIGHT WITHIN REACH
--- NOTE | 2018-12-05 07:24 | NUR ---
ENDORSED PT CARE TO DAY SHIFT NURSE DOUG FOR CONTINUITY OF CARE.
[2018-12-05 07:25] LABS: ANION GAP 13.2 (8-16); CARBON DIOXIDE 27.1 mmol/L (21-32); CHLORIDE 99 mmol/L (98-107); GLUCOSE 97 mg/dL (74-106); POTASSIUM 3.3 mmol/L (3.5-5.1); SODIUM SERUM 136 mmol/L (136-145); UREA NITROGEN, BLOOD 41 mg/dL (7-18)
[2018-12-05 08:00] VITALS: BP 177/86
--- NOTE | 2018-12-05 08:15 | NUR ---
DIALYSIS STARTED FOR PT. IS AT BEDSIDE. WILL CONTINUE TO MONITOR PT.
[2018-12-05] MEDS: hydrALAZINE 10 MG TAB PO SCH (09:00)
[2018-12-05] MEDS: FOAM DRESSING TP SCH (09:00)
[2018-12-05] MEDS ORDERED: ROC2I IV (09:39)
[2018-12-05] MEDS: DOCUSATE SODIUM 100 MG GELCAP PO SCH (09:44)
[2018-12-05] MEDS: FAMOTIDINE 20 MG TAB PO SCH (09:44)
[2018-12-05] MEDS: SEVELAMER CARBONATE 800 MG TAB PO SCH ×3 (09:44→17:50)
[2018-12-05] MEDS: amLODIPine 5 MG TAB PO SCH (09:45)
[2018-12-05] MEDS: LACTOBACILLUS RHAMNOSUS GG 1 EACH CAP PO SCH (09:46)
[2018-12-05] MEDS: SENNA 8.6 MG TAB PO SCH (09:46)
[2018-12-05] MEDS: VIT-B COMP/VIT-C/FOLIC ACID 1 TAB PO SCH (09:46)
[2018-12-05] MEDS: LEVOTHYROXINE 0.05 MG TAB PO SCH (09:46)
[2018-12-05] MEDS: GABAPENTIN 100 MG CAP PO SCH (09:46)
[2018-12-05] MEDS: METOCLOPRAMIDE 10 MG TAB PO SCH ×3 (09:47→17:50)
--- NOTE | 2018-12-05 12:21 | NUR ---
DIALYSIS NOW OVER FOR PT. PT TOLERATED WELL. 1.0L WERE REMOVED FROM PT. ALL SCHEDULED MORNING MEDS WERE GIVEN EXCEPT APRESOLINE. PER DR ORDERS, NO OTHER BP MEDS NEED TO BE GIVEN AT THIS TIME. PT BP IS TRENDING DOWN.
--- NOTE | 2018-12-05 12:53 | NUR ---
* ST NOTE * Pt seen at bedside w/caregiver/family present. Pt asleep upon entering room, but upon awakening, alert and cooperative, appearing mildly to moderately confused, but reporting no c/o pain at this time. Pt consenting to evaluation w/family present. Bedside dysphagia and oral mechanism exams completed. See evaluation report for further details. Pt tolerating 4/4 alternating PO trials of regular solid saltine crackers w/o s/s of aspiration w/minimal to occasional residue in oral cavity after PO intake. Pt however tolerating 1/3 alternating PO trials of thin liquid apple juice via a straw, demonstrating coughing after PO intake of thin liquids. Pt then tolerating 4/4 alternating PO trials of nectar-thickened lemon water via a cup w/o s/s of aspiration or choking. Pt clearing oral cavity utilizing alternating btwn solids and liquids safe swallow compensatory strategy as instructed by clinician at this time. Pt and caregiver/family education completed re: aspiration precautions and safe swallow compensatory strategies pt and caregiver/family could utilize to aid pt w/swallow function, w/pt indifferent but caregiver/family verbalizing understanding and agreement w/clinician's recommendations. Because pt presenting with oral residue w/regular solids, it is thus recommended pt's PO diet consistency be modified to mechanical soft-chopped textures w/nectar-thickened liquids for all meals w/strict aspiration precautions in place. No further ST follow up recommended at this time. Pt, caregiver/family and caregivers/nsg education completed re: results of evaluation; benefits of abiding by recommended PO diet consistency and aspiration precautions; and prognosis for improvement; with pt indifferent but caregiver/family and caregivers/nsg verbalizing understanding and agreement w/clinician's recommendations. Recommend: - DIET DOWNGRADE: MECHANICAL SOFT-CHOPPED TEXTURES W/NECTAR-THICKENED LIQUIDS for all meals - WHOLE PILL PO MEDICATION ADMINISTRATION, OR CRUSHED IN PUREE, MECH SOFT, OR NECTAR-THICKENED TEXTURES - PO INTAKE OF LIQUIDS THROUGH CUP OR SPOON ONLY - NO USE OF STRAW W/NECTAR-THICKENED LIQUIDS - Maintain ASPIRATION PRECAUTIONS d/t pt's confusion 2/2 to UTI - Pt requires total assistance w/feeding - Feeder to SIT PT UP AT 80-90 DEGREE ANGLE DURING PO INTAKE, FEED PT SLOWLY, ALTERNATING BTWN SOLIDS & LIQUIDS, AND UTILIZING SMALL BITES/SIPS - Pt's PO diet consistency may be upgraded gradually as tolerated No further ST follow up recommended at this time. NOMS Level 3 Time In/Out 11:45 - 12:30
--- NOTE | 2018-12-05 13:30 | NUR ---
Senior Investment Manager Notes: I called Susan Gonzalez at to fis Addendum: 12/05/18 at 1408 by Malean Shaver CM Incomplete note
--- NOTE | 2018-12-05 13:32 | NUR ---
Communications Technologist Notes: I called Susan Gonzalez at , I spoke to Mary Anne RN to informed them that Patient is ready for discharge today and it is these Twisthand's understanding that Patient is able to retuned to Bed 29C. Per Yany she will talk to with the clerk supervisor of the day about Patient's discharge to an isolation bed. I was placed and a hold and then clerk supervisor of the day Emily got on the phone stating that the facility had to do some changes of beds to acomodate patient's needs with Isolation and apologized for the inconvenience and delay. Emily stated that Patient has an isolation bed 21 and requested for patient to arrive after 6:00PM today. I thanked her for her prompt assistance and I ended the call, Charge Nurse Coby was made aware and agreed to set up transport for Patient back to facility.
--- NOTE | 2018-12-05 15:20 | NUR ---
PT RESTING IN BED. AT BEDSIDE. NO SIGNS OF DISTRESS OR PAIN AT THIS TIME. WILL CONTINUE TO ROUND FREQUENTLY.
[2018-12-05 16:00] VITALS: BP_SYST 107; BP_SYST 191; BP_DIAS 66; BP_DIAS 87
[2018-12-05] MEDS ORDERED: cloNIDine 0.1 MG TAB PO PRN (17:20)
[2018-12-05] MEDS ORDERED: CLON0.1T15 PO (17:23)
[2018-12-05] MEDS ORDERED: cloNIDine 0.1 MG TAB ONE (17:45)
[2018-12-05 17:52] VITALS: BP 191/87
--- NOTE | 2018-12-05 17:54 | NUR ---
PT BP IS 191/90. DR NOTIFIED AND PUT IN ORDER FOR CLONIDINE PO 0.2MG. WILL ADMINISTER MED TO PT.
[2018-12-05] MEDS ORDERED: cloNIDine 0.1 MG TAB PO SCH (18:00)
--- NOTE | 2018-12-05 18:24 | NUR ---
ADMINISTERED MEDS TO PT. PT TOLERATED THEM WELL. NO COMPLAINTS OF PAIN OR DISTRESS AT THIS TIME. PT IN GOOD SPIRITS WITH AT BEDSIDE.
--- NOTE | 2018-12-05 19:15 | NUR ---
PT DISCHARGED TO [facility] FOR CONTINUITY OF CARE. PT DISCHARGE PAPERWORK SIGNED BY . ALL PERSONAL BELONGINGS TAKEN WITH PT'S . IV LEFT IN PLACE SINCE PT WILL BE RECEIVING IV ABX THERAPY AT [facility]. PT STABLE UPON D/C. PT BP 150/69. WRIST BANDS REMOVED AND PLACED IN SHRED BIN. PT PRESCRIPTIONS GIVEN TO . SHE VERBALIZED UNDERSTANDING OF TEACHING WITH MED CONTINUATION. PT UNABLE TO SIGN PAPERWORK DUE TO ALOC.
== END 2018-12-05 19:15 | DRG 280 ==
LOC: MED 19:09 → MTU 21:39
PROVIDERS: ADMIT General Practice; ATTEND General Practice
PROC: 5A1D70Z Performance of Urinary Filtration, Intermittent, Less than 6 Hours Per Day (ICD-10-PCS; principal; 2018-12-02)
PROC: 5A1D70Z Performance of Urinary Filtration, Intermittent, Less than 6 Hours Per Day (ICD-10-PCS; 2018-12-03)
PROC: 5A1D70Z Performance of Urinary Filtration, Intermittent, Less than 6 Hours Per Day (ICD-10-PCS; 2018-12-05)
DX: I21.A1 Myocardial infarction type 2 (principal); I50.43 Acute on chronic combined systolic (congestive) and diastolic (congestive) heart failure; N17.0 Acute kidney failure with tubular necrosis; N18.6 End stage renal disease; E43 Unspecified severe protein-calorie malnutrition; J18.9 Pneumonia, unspecified organism; T83.83XA Hemorrhage due to genitourinary prosthetic devices, implants and grafts, initial encounter; N39.0 Urinary tract infection, site not specified; I12.0 Hypertensive chronic kidney disease with stage 5 chronic kidney disease or end stage renal disease; Z99.2 Dependence on renal dialysis; Z68.27 Body mass index [BMI] 27.0-27.9, adult; Z88.5 Allergy status to narcotic agent; E11.22 Type 2 diabetes mellitus with diabetic chronic kidney disease; K21.9 Gastro-esophageal reflux disease without esophagitis; E03.9 Hypothyroidism, unspecified; M06.9 Rheumatoid arthritis, unspecified; F32.9 Major depressive disorder, single episode, unspecified; E87.6 Hypokalemia; L98.429 Non-pressure chronic ulcer of back with unspecified severity; D63.1 Anemia in chronic kidney disease; K56.41 Fecal impaction; Z96.652 Presence of left artificial knee joint; R31.9 Hematuria, unspecified; Y65.8 Other specified misadventures during surgical and medical care; Y92.89 Other specified places as the place of occurrence of the external cause; E11.40 Type 2 diabetes mellitus with diabetic neuropathy, unspecified
CPT/HCPCS: 36415; 71045; 80048; 80053; 81001; 82150; 82948; 83036; 83605; 83690; 83735; 83880; 84100; 84443; 84484; 85025; 85610; 85730; 87040; 87081; 87086; 87186; 87804; 90732; 90935; 92526; 93005; 94640; 96361; 96365; 97161-GP; 99285; J0696; J1644; J1815; J1956; J2405; J7030; J7060; J7620; J8597; Q0092